=== PATIENT | female | born 1985 | race Caucasian/White ===

== ENCOUNTER 2020-03-10 10:52 | Inpatient (IN) | payer MEDICAID, OTHER ==
[~2020-03-10] VITALS: Ht 175.3 cm; Wt 80.0 kg
[2020-03-10] MEDS ORDERED: NEWBORN KIT ONE (10:54)
[2020-03-10] MEDS ORDERED: LIDOCAINE 1%, 20ML ONE (10:54)
[2020-03-10] MEDS ORDERED: MISOPROSTOL 200 MCG TABLET ONE (10:55)
[2020-03-10] MEDS ORDERED: OXYTOCIN 30U/ 0.9% NaCL 500ML 0 ML ONE (10:55)
[2020-03-10] MEDS ORDERED: D5%-LACTATED RINGERS 1,000 ML IV SCH (10:58)
[2020-03-10] MEDS ORDERED: OXYTOCIN 30U/ 0.9% NaCL 500ML 500 ML IV ONE (10:58)
[2020-03-10] MEDS ORDERED: LACTATED RINGERS 1,000 ML IV SCH (10:58)
[2020-03-10] MEDS ORDERED: TERBUTALINE 1 MG/ML, 1ML IVPush PRN (11:00)
[2020-03-10] MEDS ORDERED: CALCIUM CARBONATE 500 MG TAB.CHEW PO PRN (11:00)
[2020-03-10] MEDS ORDERED: METOCLOPRAMIDE 5 MG/ML, 2ML IVPush PRN (11:00)
[2020-03-10] MEDS ORDERED: ONDANSETRON 2MG/ML, 2ML IVPush PRN (11:00)
[2020-03-10] MEDS ORDERED: FENTANYL PF 100 MCG/2ML IVPush PRN ×2 (11:00→15:00)
[2020-03-10] MEDS ORDERED: FENTANYL PF 100 MCG/2ML IV PRN (11:00)
[2020-03-10] MEDS ORDERED: SODIUM CITRATE/CITRIC ACID 30 ML UDC PO PRN (11:00)
[2020-03-10] MEDS ORDERED: TERBUTALINE 1 MG/ML, 1ML SQ PRN (11:00)
[2020-03-10] MEDS ORDERED: SODIUM CITRATE/CITRIC ACID 30 ML UDC ONE (11:27)
[2020-03-10] MEDS ORDERED: METOCLOPRAMIDE 5 MG/ML, 2ML ONE (11:27)
[2020-03-10 11:28] LABS: MEAN CORPUSCULAR HGB CONC 33.7 g/dL (32.4-35.8); MEAN PLATELET VOLUME 10.1 fL (7.4-10.4); PLATELET COUNT 176 x10^3/uL (130-400); RED BLOOD COUNT 3.85 x10^6/uL (3.82-5.3)
[2020-03-10] MEDS ORDERED: PLEASE ENTER ALLERGIES MC SCH (11:30)
[2020-03-10] MEDS ORDERED: PLEASE ENTER HEIGHT AND WEIGHT MC SCH (11:30)
[2020-03-10 11:32] LABS: MICROSCOPIC INDICATED
[2020-03-10] MEDS ORDERED: PROPOFOL 10 MG/ML, 100ML IV ONE (11:34)
[2020-03-10] MEDS ORDERED: ONDANSETRON 2MG/ML, 2ML ONE ×3 (11:34→14:50)
[2020-03-10] MEDS ORDERED: DEXAMETHASONE 4 MG/ML, 1ML ONE ×2 (11:34→11:53)
[2020-03-10] MEDS ORDERED: SUCCINYLCHOLINE 20 MG/ML, 10ML ONE (11:34)
[2020-03-10 11:38] LABS: AMPHETAMINE SCREEN, URINE Positive (Negative); BARBITURATE SCREEN, URINE Negative (Negative); BENZODIAZEPINE SCREEN, URINE Negative (Negative); CANNABINOID SCREEN, URINE Negative (Negative); COCAINE SCREEN, URINE Negative (Negative); METHADONE SCREEN, URINE Negative (Negative); OPIATE SCREEN, URINE Positive (Negative); PROTEIN/CREATININE RATIO,URINE 165 (0-200); TOTAL PROTEIN,URINE RANDOM 43 mg/dL (0-12)
[2020-03-10 11:41] LABS: ALBUMIN 2.1 g/dL (3.4-5.0); ANION GAP 8 mmol/L (5-15); CALCIUM 8.4 mg/dL (8.5-10.1); CHLORIDE 107 mmol/L (98-107)
[2020-03-10 11:48] LABS: ALANINE AMINOTRANSFERASE 17 U/L (12-78); ALKALINE PHOSPHATASE 232 U/L (45-117); BILIRUBIN,TOTAL 0.5 mg/dL (0.2-1.0); CREATININE 0.55 mg/dL (0.55-1.02); TOTAL PROTEIN 5.9 g/dL (6.4-8.2)
[2020-03-10] MEDS ORDERED: FENTANYL PF 100 MCG/2ML ONE (11:52)
[2020-03-10 11:53] LABS: MD YES
[2020-03-10] MEDS ORDERED: OXYTOCIN 10 UNITS/ML, 1ML ONE (11:53)
[2020-03-10] MEDS ORDERED: WATER-INJECTION,STERILE 10 ML IV ONE (11:53)
[2020-03-10] MEDS ORDERED: KETOROLAC 30 MG/1 ML ONE (11:53)
[2020-03-10] MEDS ORDERED: CEFAZOLIN 1,000 MG ONE (11:53)
[2020-03-10] MEDS ORDERED: OXYTOCIN 30U/ 0.9% NaCL 500ML 500 ML ONE (11:56)
[2020-03-10 12:00] LABS: BAND#(MANUAL) 2.39 x10^3/uL; BANDS%(MANUAL) 8 % (0-7); LYMPHS% (MANUAL) 4 % (22-44); MONOS% (MANUAL) 1 % (2-9); SEG#(MANUAL) 26.01 x10^3/uL (1.8-6.8); SEGS% (MANUAL) 87 % (42-75)
[2020-03-10] MEDS ORDERED: LACTATED RINGERS 1,000 ML IVBOLUS ONE (12:00)
[2020-03-10 12:02] LABS: <PLATELET ESTIMATE> ADEQUATE; <RBC MORPHOLOGY> NORMAL; LARGE PLATELETS 1+
[2020-03-10] MEDS: LACTATED RINGERS 1,000 ML IV SCH ×2 (12:41→22:47)
[2020-03-10] MEDS ORDERED: OXYcodone 5 MG/5 ML ORAL.SOL UDC ONE (12:45)
[2020-03-10] MEDS ORDERED: LABETALOL 5MG/ML, 20ML IVPush PRN (13:00)
[2020-03-10] MEDS ORDERED: morphine SULFATE 10 MG/ML, 1ML IV PRN ×2 (13:00→15:00)
[2020-03-10] MEDS ORDERED: MORPHINE SULFATE 4 MG/ML, 1ML IVPush PRN (13:00)
[2020-03-10] MEDS ORDERED: OXYcodone 5 MG/5 ML ORAL.SOL UDC PO ONE (13:00)
[2020-03-10] MEDS ORDERED: METHYLERGONOVINE 0.2 MG/ML IM PRN (13:00)
[2020-03-10] MEDS ORDERED: MISOPROSTOL 200 MCG TABLET PR PRN (13:00)
[2020-03-10] MEDS ORDERED: ONDANSETRON 2MG/ML, 2ML IV PRN ×2 (13:00→15:00)
[2020-03-10] MEDS: KETOROLAC 30 MG/1 ML IV SCH ×2 (13:00→20:13)
[2020-03-10] MEDS ORDERED: PREN1TAB60 PO (13:58)
[2020-03-10] MEDS ORDERED: BUPR1FIL5 SL (13:59)
[2020-03-10] MEDS ORDERED: LEVO300T4 PO (14:00)
[2020-03-10] MEDS ORDERED: ADERAL PO (14:02)
[2020-03-10] MEDS: OXYTOCIN 30U/ 0.9% NaCL 500ML 500 ML IV SCH ×2 (14:26→22:41)
[2020-03-10] MEDS ORDERED: CARBOPROST TROMETHAMINE 250 MCG/ML, 1ML IM STA (14:32)
[2020-03-10] MEDS ORDERED: CARBOPROST TROMETHAMINE 250 MCG/ML, 1ML IM ONE (14:33)
[2020-03-10] MEDS ORDERED: PROMETHAZINE 25 MG/ML, 1ML IV PRN (15:00)
[2020-03-10] MEDS ORDERED: LABETALOL 5MG/ML 40ML VIAL IV PRN (15:00)
[2020-03-10] MEDS ORDERED: OXYcodone 5 MG/5 ML ORAL.SOL UDC PO PRN (15:00)
[2020-03-10 15:10] VITALS: BP 146/92
[2020-03-10] MEDS: OXYcodone/APAP 5/325MG TABLET PO PRN ×2 (17:11→23:37)
[2020-03-10] MEDS ORDERED: LABETALOL 100 MG TABLET PO SCH (18:00)
[2020-03-10 19:58] LABS: MD YES; MEAN CORPUSCULAR HEMOGLOBIN 30.8 pg (27.0-34.8); MEAN CORPUSCULAR HGB CONC 33.7 g/dL (32.4-35.8); MEAN CORPUSCULAR VOLUME 91.4 fL (80-100); MEAN PLATELET VOLUME 10.1 fL (7.4-10.4); PLATELET COUNT 204 x10^3/uL (130-400); RED BLOOD COUNT 2.63 x10^6/uL (3.82-5.3); RED CELL DISTRIBUTION WIDTH 14.5 % (9.6-15.2)
[2020-03-10 20:00] VITALS: BP 90/56
[2020-03-10] MEDS: DOCUSATE 100 MG CAPSULE PO PRN (20:13)
[2020-03-10] MEDS: SIMETHICONE 80 MG CHEW TAB PO PRN (20:13)
[2020-03-10 20:15] LABS: BAND#(MANUAL) 7.39 x10^3/uL; BANDS%(MANUAL) 22 % (0-7); LYMPH#(MANUAL) 2.02 x10^3/uL (1-3.4); LYMPHS% (MANUAL) 6 % (22-44); SEG#(MANUAL) 24.19 x10^3/uL (1.8-6.8); SEGS% (MANUAL) 72 % (42-75)
[2020-03-10 20:17] LABS: <PLATELET ESTIMATE> ADEQUATE; <RBC MORPHOLOGY> NORMAL; LARGE PLATELETS 1+
[2020-03-10 20:20] VITALS: BP 100/65
[2020-03-10 23:30] VITALS: BP 107/61
[2020-03-11] VITALS (7 sets, daily range): BP systolic 106–134; BP diastolic 65–90
[2020-03-11] MEDS: KETOROLAC 30 MG/1 ML IV SCH ×3 (02:02→14:00)
[2020-03-11] MEDS: SIMETHICONE 80 MG CHEW TAB PO PRN ×2 (02:09→20:45)
[2020-03-11] MEDS: OXYcodone/APAP 5/325MG TABLET PO PRN ×4 (03:26→20:45)
[2020-03-11 06:14] LABS: MD YES; MEAN CORPUSCULAR HEMOGLOBIN 31.1 pg (27.0-34.8); MEAN CORPUSCULAR HGB CONC 33.5 g/dL (32.4-35.8); MEAN CORPUSCULAR VOLUME 92.7 fL (80-100); MEAN PLATELET VOLUME 10.5 fL (7.4-10.4); PLATELET COUNT 166 x10^3/uL (130-400); RED BLOOD COUNT 2.32 x10^6/uL (3.82-5.3); RED CELL DISTRIBUTION WIDTH 14.4 % (9.6-15.2)
[2020-03-11 06:15] LABS: BAND#(MANUAL) 0.95 x10^3/uL; BANDS%(MANUAL) 3 % (0-7); LYMPH#(MANUAL) 1.26 x10^3/uL (1-3.4); LYMPHS% (MANUAL) 4 % (22-44); MONOS#(MANUAL) 0.95 x10^3/uL (0.3-2.7); MONOS% (MANUAL) 3 % (2-9); SEG#(MANUAL) 28.35 x10^3/uL (1.8-6.8); SEGS% (MANUAL) 90 % (42-75)
[2020-03-11 06:16] LABS: <RBC MORPHOLOGY> NORMAL
[2020-03-11 06:17] LABS: <PLATELET ESTIMATE> ADEQUATE; LARGE PLATELETS 1+
[2020-03-11] MEDS: OXYTOCIN 30U/ 0.9% NaCL 500ML 500 ML IV SCH ×2 (08:41→18:41)
[2020-03-11] MEDS: LACTATED RINGERS 1,000 ML IV SCH ×2 (08:41→18:41)
[2020-03-11] MEDS: FERROUS SULFATE 325 MG TABLET PO SCH ×3 (09:13→17:18)
[2020-03-11] MEDS: PRENATAL VIT/IRON/FA 1 EACH TABLET PO SCH (09:13)
[2020-03-11] MEDS: DOCUSATE 100 MG CAPSULE PO PRN ×2 (09:13→20:50)
[2020-03-11] MEDS ORDERED: IBUPROFEN 600 MG TABLET ONE (17:10)
[2020-03-11] MEDS: IBUPROFEN 800 MG TABLET PO PRN (20:45)
[2020-03-12 00:45] VITALS: BP 129/85
[2020-03-12] MEDS: OXYcodone/APAP 5/325MG TABLET PO PRN ×4 (00:53→12:23)
[2020-03-12] MEDS: SIMETHICONE 80 MG CHEW TAB PO PRN ×2 (01:48→07:51)
[2020-03-12] MEDS: IBUPROFEN 800 MG TABLET PO PRN (04:26)
[2020-03-12 04:30] VITALS: BP 124/73
[2020-03-12] MEDS: LACTATED RINGERS 1,000 ML IV SCH (04:41)
[2020-03-12] MEDS: OXYTOCIN 30U/ 0.9% NaCL 500ML 500 ML IV SCH (04:41)
[2020-03-12 05:21] LABS: MEAN CORPUSCULAR HEMOGLOBIN 30.9 pg (27.0-34.8); MEAN CORPUSCULAR HGB CONC 33.7 g/dL (32.4-35.8); MEAN CORPUSCULAR VOLUME 91.8 fL (80-100); MEAN PLATELET VOLUME 8.7 fL (7.4-10.4); PLATELET COUNT 226 x10^3/uL (130-400); RED CELL DISTRIBUTION WIDTH 14.8 % (9.6-15.2)
[2020-03-12 05:59] LABS: MD YES
[2020-03-12 06:04] LABS: LYMPH#(MANUAL) 1.65 x10^3/uL (1-3.4); LYMPHS% (MANUAL) 7 % (22-44); MONOS#(MANUAL) 0.24 x10^3/uL (0.3-2.7); MONOS% (MANUAL) 1 % (2-9); SEG#(MANUAL) 21.62 x10^3/uL (1.8-6.8); SEGS% (MANUAL) 92 % (42-75)
[2020-03-12 06:05] LABS: <PLATELET ESTIMATE> ADEQUATE; <PLT MORPHOLOGY> NORMAL PLT MORPH; LARGE PLATELETS 1+
[2020-03-12 06:06] LABS: POLYCHROMASIA 1+
[2020-03-12 07:45] VITALS: BP 116/71
[2020-03-12] MEDS: FERROUS SULFATE 325 MG TABLET PO SCH ×2 (07:52→12:23)
[2020-03-12] MEDS: PRENATAL VIT/IRON/FA 1 EACH TABLET PO SCH (07:52)
[2020-03-12] MEDS ORDERED: IBUP200T49 PO (12:29)
[2020-03-12] MEDS ORDERED: OXYC-302 PO (12:30)
[2020-03-12] MEDS ORDERED: FERR324T5 PO (12:32)
[2020-03-12] MEDS ORDERED: DOCU-131 PO (12:33)
== END 2020-03-12 13:15 | disposition home or self-care (01) | DRG 560 ==
LOC: LDIP 10:52 → 2NW 15:00
PROVIDERS: ADMIT Obstetrics & Gynecology; ATTEND Obstetrics & Gynecology
PROC: 10E0XZZ Delivery of Products of Conception, External Approach (ICD-10-PCS; principal; 2020-03-10)
DX: O60.14X0 Preterm labor third trimester with preterm delivery third trimester, not applicable or unspecified (principal); O99.324 Drug use complicating childbirth; E03.9 Hypothyroidism, unspecified; O34.219 Maternal care for unspecified type scar from previous cesarean delivery; O42.913 Preterm premature rupture of membranes, unspecified as to length of time between rupture and onset of labor, third trimester; O77.9 Labor and delivery complicated by fetal stress, unspecified; F11.90 Opioid use, unspecified, uncomplicated; O99.284 Endocrine, nutritional and metabolic diseases complicating childbirth; Z37.0 Single live birth; Z3A.36 36 weeks gestation of pregnancy; Z88.8 Allergy status to other drugs, medicaments and biological substances
CPT/HCPCS: 36415; 80053; 80307; 81001; 82570; 82803; 84156; 84550; 85025; 86592; 86762; 86850; 86900; 87340; 87806; 88307; G0378; J0690; J1100; J1885; J2405; J2704; J3010; G0475; J0330; J2590; J2765; J7120